=== PATIENT | female | born 1950 | race Caucasian/White ===

== ENCOUNTER 2020-07-27 06:05 | Day surgery (SDC) | payer MEDICARE, SELFPAY ==
[2020-07-25 08:38] VITALS: BMI 47.4
--- NOTE | 2020-07-25 15:01 | HO.ANESPROP2 ---
Documented by User: Shae Morris 07/25/20 15:05 HPI - Anesthesia Eval Consult details Narrative: 70yo F for L foot surgery PMFSH Past Medical History Medical History Anxiety Arthritis Degenerative joint disease GERD (gastroesophageal reflux disease) High cholesterol HTN (hypertension) Hx of cancer of endometrium Hx of hiatal hernia Hx of peripheral neuropathy Hx pulmonary embolism Major depression Sleep apnea Spinal stenosis of lumbar region Thrombophilia Surgical History Surgical History Hx of colonoscopy Hx of hysterectomy Hx of total knee replacement Social History Social History Smoking Status: Never smoker Second Hand Smoke Exposure: No Use of substances other than those prescribed or required for medical reasons: No Advance Directives: Yes Advance Directives Information Provided: No Advance Directives on File: No Meds Allergies Allergy/AdvReac Type Severity Reaction Status Date / Time adhesive tape Allergy Rash Verified 07/25/20 08:20 erythromycin base Allergy Unknown Verified 07/25/20 08:44 Penicillins Allergy Unknown Verified 07/25/20 10:40 IV CONTRAST DYE Allergy Itching Uncoded 07/25/20 10:40 Home Medications Medication Instructions Recorded Confirmed Type amlodipine 1 tab PO DAILY 07/24/20 07/24/20 History atorvastatin 1 tab PO BEDTIME 07/24/20 07/25/20 History dorzolamide drp OPHTHALMIC (EYE) BID 07/24/20 History apixaban [Eliquis] 1 tab PO BID 07/25/20 07/25/20 History bimatoprost [Lumigan] drp OPHTHALMIC (EYE) DAILY 07/25/20 History duloxetine 1 cap PO BEDTIME 07/25/20 07/25/20 History famotidine 1 tab PO DAILY 07/25/20 07/25/20 History omeprazole 1 cap PO DAILY 07/25/20 07/25/20 History Exam Exam Date and Time: July 25, 2020 1501 Height,Weight and Vital Signs: Height 5 ft 5 in Weight 129.274 kg Pertinent Lab Results Pertinent Lab Results: BMP 05/09/20 WNL A1C 6.6 Documented by User: Ryan Sanders 07/27/20 07:29 PMFSH Past Medical History Medical History Anxiety Arthritis Degenerative joint disease GERD (gastroesophageal reflux disease) High cholesterol HTN (hypertension) Hx of cancer of endometrium Hx of hiatal hernia Hx of peripheral neuropathy Hx pulmonary embolism Major depression Sleep apnea Spinal stenosis of lumbar region Thrombophilia Surgical History Surgical History Hx of colonoscopy Hx of hysterectomy Hx of total knee replacement Social History Social History Smoking Status: Never smoker Second Hand Smoke Exposure: No Use of substances other than those prescribed or required for medical reasons: No Advance Directives: Yes Advance Directives Information Provided: No Advance Directives on File: No Meds Allergies Allergy/AdvReac Type Severity Reaction Status Date / Time adhesive tape Allergy Rash Verified 07/25/20 08:20 erythromycin base Allergy Unknown Verified 07/25/20 08:44 Penicillins Allergy Unknown Verified 07/25/20 10:40 IV CONTRAST DYE Allergy Itching Uncoded 07/25/20 10:40 Home Medications Medication Instructions Recorded Confirmed Type amlodipine 1 tab PO DAILY 07/24/20 07/24/20 History atorvastatin 1 tab PO BEDTIME 07/24/20 07/25/20 History dorzolamide drp OPHTHALMIC (EYE) BID 07/24/20 History apixaban [Eliquis] 1 tab PO BID 07/25/20 07/25/20 History bimatoprost [Lumigan] drp OPHTHALMIC (EYE) DAILY 07/25/20 History duloxetine 1 cap PO BEDTIME 07/25/20 07/25/20 History famotidine 1 tab PO DAILY 07/25/20 07/25/20 History omeprazole 1 cap PO DAILY 07/25/20 07/25/20 History Exam Airway Mallampati Class: I TM Dist: >3cm Neck ROM: Full Heart: RRR Assessment and Plan Assessment Anesthesia Assessment: Anesthesia Plan Discussed Final Anesthetic Review NPO: Yes ASA Class: IV Final Preanesthetic Review: Consent Obtained/Reviewed Anesthetic Plan Anesthetic Plan: MAC: Disposition: Standard PACU
--- NOTE | 2020-07-26 09:57 | HP_ITS ---
DATE OF SERVICE: 07/27/2020 PREOPERATIVE DIAGNOSIS: Painful hammertoe, left 2nd toe. PLANNED PROCEDURE: Condylectomy, left 2nd toe. PAST MEDICAL HISTORY: Arthritis, hip, back and knee pain. Cancer, measles, mumps, glaucoma, chickenpox, acid reflux. CURRENT MEDICATIONS: Omeprazole, vitamin D3, atorvastatin, tramadol, dorzolamide, Lumigan, Eliquis, duloxetine, Celebrex, gabapentin, amlodipine. PAST SURGICAL HISTORY: Hysterectomy, cataract surgery, knee replacement, hiatal hernia. FAMILY HISTORY: Noncontributory. SOCIAL HISTORY: The patient is a nonsmoker. She denies any illicit drug use. Relates occasional alcohol use. She is retired. ALLERGIES: PENICILLIN, ERYTHROMYCIN, ADHESIVE TAPE, AND DYE. HOSPITALIZATIONS: Denies. REVIEW OF SYSTEMS: Within normal limits. HISTORY OF PRESENT ILLNESS: This is a 70-year-old female presents with continued pain in the distal aspect of her 2nd toe on the left foot that has been present for many months of unknown origin. The patient has tried multiple conservative therapies including partial and full nail avulsion, soaking, cortisone injections, and padding without any relief of symptoms. PHYSICAL EXAMINATION: Reveals a pleasant, alert, well-nourished, well-developed, well-hydrated individual, who demonstrates proper attention to hygiene and body habitus, who is in no acute distress. Neurological exam reveals intact sensorium. Pain sensation is normal. Vibratory sensation is intact. Pinprick sensation is normal. Denies any anesthesias, burning, paresthesias, or tingling bilaterally. Vascular status, DP and PT pulses are 3/4 bilaterally. Capillary refill time is immediate to all digits. Skin temperature is warm to cool proximal to distal. Hair growth texture and elasticity are normal bilaterally. Pigmentation is normal bilaterally and there is no edema bilaterally. ORTHOPEDIC EXAM: Reveals pain on palpation to the dorsal middle phalanx, the medial base of the distal phalanx on the left 2nd toe. No pain with range of motion of the PIP joint. PLAN: Surgery was discussed in detail with the patient including risks of surgery and not having surgery, the potential surgical complications, the anesthesia, and the usual postoperative course. No guarantees were given. We discussed with the patient complications such as but not limited to delayed or nonhealing, excessive scarring, excessive swelling, failure of the procedure, floppy toe infection, nonunion, numbness, chronic pain, recurrence, shortened toe, joint stiffness, failure of the procedure, and loss of toe, foot, life, or limb. Alternatives to the procedure were also discussed including conservative care. The patient would like to proceed with surgical treatment. The patient will obtain preoperative labs as well as medical clearance for surgery and anesthesia. The patient is made aware to stop any and all blood thinners at least 1 week prior to surgery. The patient is made aware that driving may not be allowed during a portion of postoperative period. The patient deferred narcotic pain medication. Recommended alternate staggering Tylenol Extra Strength. Mouna Pichardo DPM LP/RIP / [id number]
[2020-07-27 06:38] VITALS: BP 141/82; PULSE 82; RESP 16; TEMP 36.8; O2SAT 95
[2020-07-27] MEDS: Lactated Ringers 1,000 ML 100 ML IVCONT (07:10)
[2020-07-27] MEDS: ceFAZolin Sodium/Dextrose,Iso 2 GM/50 ML PIGGYBACK IV (07:34)
--- NOTE | 2020-07-27 07:36 | MHC.SHP ---
Pre-Procedural Eval Section A The patient is an INPATIENT: No Changes since office visit: Yes Patient answered all questions The History & Physical has been completed within 30 days and I have reviewed it.: Yes Section B Chief Complaint: Exostosis Left Foot Second Toe Allergies: Allergies Allergy/AdvReac Type Severity Reaction Status Date / Time adhesive tape Allergy Rash Verified 07/25/20 08:20 erythromycin base Allergy Unknown Verified 07/25/20 08:44 Penicillins Allergy Unknown Verified 07/25/20 10:40 IV CONTRAST DYE Allergy Itching Uncoded 07/25/20 10:40 Plan Patient has been examined and remains a candidate for the planned procedure
--- NOTE | 2020-07-27 08:10 | P.BOP_ITS ---
Brief Operative Note Date of procedure: 07/27/20 Pre-op diagnosis: Hammertoe left 2nd Post-op diagnosis: same Procedure: Hammertoe repair, condylectomy left 2nd Implants: None Surgeon: Mouna Pichardo Anesthesia: MAC and local Double End Chucking Machine Operator: Alberto Chiu Estimated blood loss (mL): 1 Tourniquet time (min): 9 Pathology: other (Bone) Condition: stable Disposition: PACU
[2020-07-27 08:14] VITALS: BP 149/88; PULSE 79; RESP 18; TEMP 36.5; O2SAT 100
[2020-07-27 08:19] VITALS: BP 144/79; PULSE 73; RESP 18; TEMP 36.5; O2SAT 100
[2020-07-27 08:24] VITALS: BP 138/83; PULSE 70; RESP 18; TEMP 36.5; O2SAT 100
[2020-07-27 08:44] VITALS: BP 146/81; PULSE 69; RESP 18; TEMP 36.5; O2SAT 96
--- NOTE | 2020-07-27 09:18 | HO.POSTANES ---
Post Anesthesia Evaluation Post Anesthesia Evaluation Vital Signs: Vital Signs Temp Pulse Resp BP Pulse Ox 07/27/20 08:44 97.7 F 69 18 146/81 H 96 07/27/20 08:24 97.7 F 70 18 138/83 100 07/27/20 08:19 97.7 F 73 18 144/79 H 100 07/27/20 08:14 97.7 F 79 18 149/88 H 100 07/27/20 06:38 98.2 F 82 16 141/82 H 95 Anesthesia: Monitored Mental Status: Awake Pain Control: Satisfactory Nausea/Vomiting: None Hydration: Adequate Anesthesia-Related Issues: No Anes. Related Issues
--- NOTE | 2020-07-27 09:22 | PC.NURSE ---
Pt states she has a walker at home for stability and ambulating; no crutches or walker were provided by [facility] at this time
--- NOTE | 2020-07-28 15:24 | OP_ITS ---
SURGEON: Mouna Pichardo DPM PREOPERATIVE DIAGNOSIS: 1. Hammertoe deformity, left 2nd toe. 2. Exostosis, left 2nd toe. POSTOPERATIVE DIAGNOSIS: Same PROCEDURES PERFORMED: 1. Hammertoe correction, left 2nd toe. 2. Condylectomy, left 2nd toe. ESTIMATED BLOOD LOSS: Less than 1 cc. COMPLICATIONS: None. ANESTHESIA: Monitored anesthetic care with local consisting preoperatively of 0.5% Marcaine plain and 2% lidocaine plain, 5 mL and postoperatively of 5 mL of 0.5% Marcaine plain and 1 mL of dexamethasone. ASSISTANTS: Alberto Chiu DPM SPECIMENS: Bone HEMOSTASIS: Pneumatic ankle tourniquet set at 225 mmHg for 9 minutes. INDICATIONS FOR SURGERY: The patient had painful 2nd toe at the DIP joint with a flare at the medial condyle of the distal phalanx. The patient states she has failed multiple conservative therapies and is ready for surgical intervention. The above-mentioned surgeries were discussed in detail with the patient including risks and benefits and possible complications. No guarantees were given. And written and oral informed consents were obtained. PROCEDURE IN DETAIL: The patient was brought into the operating room, placed on the table in the usual supine position. Following IV sedation and administration of 2 g of cefazolin, the left foot was scrubbed, prepped, and draped in a sterile manner, was anesthetized with the above-mentioned local anesthesia. The left foot was exsanguinated, and attention was directed to the 2nd toe where incision was made overlying the DIP joint. The incision was deepened down to subcutaneous tissue. Great care was taken to retract all vital, neural, and vascular structures and all bleeders were cauterized as necessary. A transverse tenotomy was made at the level of the PIP joint. The head of the middle phalanx was resected and passed from the operative site. The medial condyle of the distal phalanx was resected using a bone cutting forceps and passed from the operative site. Wound was irrigated with normal sterile saline. The tendon was then reapproximated with 3-0 Vicryl in an interrupted suture technique, and the skin was reapproximated with 4-0 nylon in a continuous running fashion. The toe was then given a postoperative injection of the above-mentioned local anesthesia and dexamethasone. The toe was then dressed with Xeroform, Betadine, 4 x 4 gauze, fluff, Kerlix, cast padding, and an Scooter bandage. Pneumatic ankle tourniquet was deflated after 9 minutes and prompt capillary refill was noted to all 5 digits. The patient tolerated procedure and anesthesia well. The patient was transferred to recovery room with vital signs stable and vascular status at preoperative levels. Following a period of postoperative recovery, the patient will be discharged home with written and oral postoperative care. The patient is to be partial weightbearing in a surgical shoe. Can use crutches or walker as needed. The patient is deferred narcotic pain medication. Can take extra strength Tylenol as needed for pain. Mouna Pichardo DPM LP/RIP / [id number]
== END 2020-07-27 09:47 | disposition home or self-care (01) ==
PROVIDERS: PCP Family Medicine; Visit Provider Podiatrist
PROC: (CPT 28285; principal; 2020-07-27 07:30)
DX: M20.42 Other hammer toe(s) (acquired), left foot (principal); M89.9 Disorder of bone, unspecified; Z79.899 Other long term (current) drug therapy; Z96.659 Presence of unspecified artificial knee joint; Z88.0 Allergy status to penicillin; Z88.1 Allergy status to other antibiotic agents; Z91.041 Radiographic dye allergy status; Z91.040 Latex allergy status
CPT/HCPCS: 28285; 28124; 88304; 88311; J0690; J1100; J2250; J3010